=== PATIENT | male | born 1970 | race Caucasian/White ===

== ENCOUNTER 2022-08-03 08:19 | Outpatient (RCR) | payer MEDICARE, MEDICAID | END 2022-08-22 | disposition home or self-care (01) | LOC: ONC 08:19 | PROVIDERS: ATTEND Radiology Radiation Oncology | DX: C61 Malignant neoplasm of prostate (principal); E11.9 Type 2 diabetes mellitus without complications; I10 Essential (primary) hypertension; E66.01 Morbid (severe) obesity due to excess calories | CPT/HCPCS: 99205 ==

== ENCOUNTER → 2022-10-21 | Outpatient (CLI) | payer MEDICARE, MEDICAID | END | disposition home or self-care (01) | LOC: PREOP 05:32 | PROVIDERS: ATTEND Radiology Radiation Oncology | DX: Z01.818 Encounter for other preprocedural examination (principal) ==

== ENCOUNTER 2022-11-25 05:33 | Outpatient (CLI) | payer MEDICARE, MEDICAID ==
[~2022-11-25] VITALS: Ht 172.7 cm; Wt 136.4 kg
[2022-11-25] MEDS ORDERED: LURA40TA2 PO (15:50)
[2022-11-25] MEDS ORDERED: LORA-405 SL (15:50)
[2022-11-25] MEDS ORDERED: LISI20TA26 PO (15:50)
[2022-11-25] MEDS ORDERED: NF-BISOP5 PO (15:50)
[2022-11-25] MEDS ORDERED: VENL75TA2 PO (15:50)
[2022-11-25] MEDS ORDERED: TIRZ5PEN SQ (15:50)
== END 2022-11-25 15:53 ==
LOC: PREOP 05:33
PROVIDERS: ATTEND Radiology Radiation Oncology
DX: Z01.818 Encounter for other preprocedural examination (principal); C61 Malignant neoplasm of prostate

== ENCOUNTER 2022-12-02 07:41 | Day surgery (SDC) | payer MEDICARE, MEDICAID ==
[2022-12-02] VITALS (10 sets, daily range): BP systolic 110–141; BP diastolic 68–85
[~2022-12-02] VITALS: Ht 172.2 cm; Wt 136.4 kg
[~2022-12-02 07:41] MED LIST: LISI20TA26 PO; LORA-405 SL; LURA40TA2 PO; NF-BISOP5 PO; TIRZ5PEN SQ; VENL75TA2 PO
[2022-12-02] MEDS ORDERED: LACTATED RINGERS 1,000 ML IV PRN (08:00)
--- NOTE | 2022-12-02 08:06 | Progress Note-Pre Operative ---
Pre-Operative Progress Note Date of Available H&P: Nov 23, 2022 Date H&P Reviewed: Dec 02, 2022 Time H&P Reviewed: 08:00 History & Physical: H&P Reviewed, No changes noted Pre-Operative Diagnosis: Prostate cancer cT1c, PSA 6.57, [place] 7 (3+4) LUCITA ADORNO MD Dec 02, 2022 08:05
--- NOTE | 2022-12-02 08:08 | Discharge Inst-Simple/Standard ---
Discharge Inst-Standard Reconcile Patient Problems Problems Reviewed?: Yes Discharge Medications New, Converted or Re-Newed RX: Other (Patient has antibiotic at home - take as directed.) Patient Instructions/Follow Up Plan of Care/Instructions/FU: 1)Treatment planning scan at [facility] cancer center on 12/15/22 at 10:00 a.m. Please drink 1/2 bottle of oral contrast at 9:30 a.m. prior to your appointment. Activity as Tolerated: Yes Discharge Diet: No Restrictions LUCITA ADORNO MD Dec 02, 2022 08:08
[2022-12-02] MEDS ORDERED: fentaNYL INJ 100 MCG/2 ML AMP ONE (09:07)
[2022-12-02] MEDS ORDERED: MIDAZOLAM 2 MG/2 ML (VERSED) VIAL ONE (09:25)
[2022-12-02] MEDS ORDERED: LIDOCAINE PF 2% 5 ML (XYLOCAINE) VIAL ONE (09:31)
[2022-12-02] MEDS ORDERED: ONDANSETRON 4 MG/2 ML (SDV) Z0FRAN ONE (09:31)
[2022-12-02] MEDS ORDERED: proPOfol 200 MG/20 ML (DIPRIVAN) VIAL IV ONE (09:31)
[2022-12-02] MEDS ORDERED: SEVOFLURANE (ULTANE) 15 ML INHAL SOLN ONE (09:57)
--- NOTE | 2022-12-02 10:05 | Progress Note-Post Operative ---
Post-Operative Progess Note Surgeon (s)/[employer] Architect (s) Surgeon LUCITA ADORNO MD [employer]: N/A Pre-Operative Diagnosis Prostate cancer cT1c, PSA 6.57, [place] 7 (3+4) Post-Operative Diagnosis Same as preop Procedure & Operative Findings Date of Procedure 12/02/22 Procedure Performed/Findings (1) Placement of fiducial gold seed markers under ultrasound guidance (2) Injection of biodegradable hydrogel prostate-rectal spacer utilizing the [employer] Adriana system Anesthesia Type General Estimated Blood Loss Estimated blood loss (mL): Minimal Specimens/Packing Specimens Removed None Packing: None LUCITA ADORNO MD Dec 02, 2022 10:05
--- NOTE | 2022-12-02 10:17 | Anesthesia-General Post-Op ---
General Patient Condition Mental Status/LOC: Same as Preop Cardiovascular: Satisfactory Nausea/Vomiting: Absent Respiratory: Satisfactory Pain: Controlled Complications: Absent Post Op Complications Complications None Follow Up Care/Instructions Patient Instructions None needed. Anesthesia/Patient Condition Patient Condition Patient is doing well, no complaints, stable vital signs, no apparent adverse anesthesia problems. No complications reported per nursing. KATIE CARDOSO CRNA Dec 02, 2022 10:17
== END 2022-12-02 11:45 | disposition home or self-care (01) ==
LOC: SDC 07:41
PROVIDERS: ATTEND Radiology Radiation Oncology
DX: C61 Malignant neoplasm of prostate (principal); E66.01 Morbid (severe) obesity due to excess calories; F17.210 Nicotine dependence, cigarettes, uncomplicated; Z68.42 Body mass index [BMI] 45.0-49.9, adult
CPT/HCPCS: 55874; 55876; 82947; 87081; A4648; C1889

== ENCOUNTER 2022-12-15 09:43 | Outpatient (RCR) | payer MEDICARE, MEDICAID | END 2022-12-20 | disposition home or self-care (01) | LOC: ONC 09:43 | PROVIDERS: ATTEND Radiology Radiation Oncology | DX: Z51.0 Encounter for antineoplastic radiation therapy (principal); C61 Malignant neoplasm of prostate; E11.9 Type 2 diabetes mellitus without complications; I10 Essential (primary) hypertension; E66.01 Morbid (severe) obesity due to excess calories | CPT/HCPCS: 77300; 77301; 77334; 77338 ==

== ENCOUNTER → 2023-01-20 | Outpatient (RCR) | payer MEDICARE, MEDICAID | END | disposition home or self-care (01) | LOC: ONC 01-05 13:32 | PROVIDERS: ATTEND Radiology Radiation Oncology | DX: Z51.0 Encounter for antineoplastic radiation therapy (principal); C61 Malignant neoplasm of prostate; E11.9 Type 2 diabetes mellitus without complications; I10 Essential (primary) hypertension; E66.01 Morbid (severe) obesity due to excess calories | CPT/HCPCS: 77336; 77385 ==

== ENCOUNTER → 2023-02-19 | Outpatient (RCR) | payer MEDICARE, MEDICAID | END | disposition home or self-care (01) | LOC: ONC 01-21 14:09 | PROVIDERS: ATTEND Radiology Radiation Oncology | DX: Z51.0 Encounter for antineoplastic radiation therapy (principal); C61 Malignant neoplasm of prostate; E11.9 Type 2 diabetes mellitus without complications; I10 Essential (primary) hypertension; E66.01 Morbid (severe) obesity due to excess calories | CPT/HCPCS: 77300; 77336; 77385 ==

== ENCOUNTER 2023-03-10 13:25 | Outpatient (RCR) | payer MEDICARE, MEDICAID | END 2023-03-22 | disposition home or self-care (01) | LOC: ONC 13:25 | PROVIDERS: ATTEND Radiology Radiation Oncology | DX: Z51.0 Encounter for antineoplastic radiation therapy (principal); C61 Malignant neoplasm of prostate; E11.9 Type 2 diabetes mellitus without complications; I10 Essential (primary) hypertension; E66.01 Morbid (severe) obesity due to excess calories | CPT/HCPCS: 77385; G0463; 77336 ==

== ENCOUNTER → 2023-04-22 | Outpatient (RCR) | payer MEDICARE, MEDICAID | LOC: ONC 09:52 | PROVIDERS: ATTEND Radiology Radiation Oncology | DX: C61 Malignant neoplasm of prostate (principal); E11.9 Type 2 diabetes mellitus without complications; I10 Essential (primary) hypertension; E66.01 Morbid (severe) obesity due to excess calories | CPT/HCPCS: 84153; G0463; 36415; 99213 ==